=== PATIENT | female | born 1980 | race Caucasian/White ===

== ENCOUNTER 2017-09-18 19:48 | Inpatient (IN) | payer MEDICARE ==
[~2017-09-18] VITALS: Ht 167.6 cm; Wt 58.5 kg
[~2017-09-18 19:48] MED LIST: ALPRAZOLAM; AMBIEN 5 MG TABL5 M1 PO; AMITRIPTYLINE H25 M2; ANTIVERT25 MG PO; AUGMENTIN 875875 MG PO; BENADRYL25 MG PO; BUSPIRONE HCL10 MG PO; BUSPIRONE HCL15 MG; BUTALB-ACETAMI1 EAC2; CIPROFLOXACIN500 M3 PO; CLARITIN10 MG PO; CLONAZEPAM; CLONAZEPAM 0.50.5 M1 PO; CLONAZEPAM PO; CLONAZEPAM0.5 MG PO; COLACE100 MG PO; CYCLOBENZAPRINE10 MG; DILAUDID 4 MG TA4 M1; DOXYCYCLINE 10100 MG PO; DURAGESIC1 EAC2; EFFEXOR XR75 MG PO; FIORICET 50-321 EACH PO; FLONASE 0.05%50 MCG NS; HYDROCORTISONE30 G9; INDOMETHACIN 2525 MG; KEPPRA1000 MG; KETOROLAC TROME10 MG PO; KLONIPIN; KLONOPIN0.5 MG; LIORESAL 10 MG10 MG PO; LOESTRIN FE 1-1 EACH PO; LORTAB 5 MG/5001 TAB PO; LUNESTA3 MG; LUNESTA3 MG PO; LUTERA1 EACH; METAXALONE800 MG PO; MIRTAZAPINE15 M2; NAPROXEN SODIU220 M2; NEURONTIN 300300 M1 PO; NEURONTIN 300M300 M2; NOHOMEMEDICATIONS; NORCO 5-325 TA1 EACH PO; NUVARING VAGIN1 EACH VG; ONDANSETRON HCL4 M3 PO; OXYMORPHONE HCL10 M1 PO; OXYMORPHONE HCL15 MG PO; PAXIL30 MG; PAXIL40 MG PO; PENICILLIN VK500 MG PO; PEPCID20 MG PO; PERCOCET 5-3251 EACH PO; PHENERGAN 25 MG25 M1 PO; PHENERGAN25 MG RECTAL; PREDNISONE 20 M20 M1 PO; PRILOSEC 20 MG20 MG PO; PROMETHAZINE12.5 M1 PO; RELAFEN500 MG PO; REMERON15 MG; SAVELLA50 MG PO; SERTRALINE HCL50 MG PO; SOMA250 MG PO; TOPAMAX50 MG PO; TOPIRAGEN50 MG; TRAMADOL 50 MG50 MG; TRIAMCINOLONE A80 G2 TOP; TYLENOL EX-STR500 M2; ULTRAM 50MG TAB50 MG; VALIUM5 MG PO; VICODIN; VICODIN 5-5001 EACH PO; VISTARIL 25 MG25 M1 PO; VOLTAREN PO; XANAX 1 MG TABLE1 MG PO; ZANAFLEX4 MG PO; ZOFRAN ODT4 MG PO; ZOFRAN4 MG PO; ZOLOFT100 MG; [UNRECOGNIZED DRUG - OTHER]; [UNRECOGNIZED DRUG - OTHER]
[2017-09-18 19:50] VITALS: BP 127/91
[2017-09-18] MEDS ORDERED: LEVOCETIRIZINE D5 MG PO (19:57)
[2017-09-18 20:07] LABS: BE -5.2 mmol/L (-2 to +3); HCO3 17.5 mmol/L (22.0-26.0); PCO2 27.1 mmHg (35.0-45.0); pH 7.427 (7.340-7.450)
[2017-09-18 20:18] LABS: ABSOLUTE EOSINOPHILS 0.1 thou/uL (0.0-0.7); ABSOLUTE LYMPHOCYTES 1.7 thou/uL (0.8-5.3); ABSOLUTE MONOCYTES 0.5 thou/uL (0.0-1.2); ABSOLUTE NEUTROPHILS 10.3 thou/uL (1.6-8.1); BASOPHILS 0.3 %; EOSINOPHILS 0.6 %; HEMATOCRIT 46.4 % (37.0-47.0); HEMOGLOBIN 15.2 gm/dL (12.0-15.0); LYMPHOCYTES 13.9 %; MCH 30.6 pg (26.0-34.0); MCHC 32.7 g/dL (28.0-37.0); MCV 93.4 fL (80.0-100.0); MONOCYTES 3.9 %; MPV 10.6 fl. (7.2-11.1); NUCLEATED RBCS 0 /100WBC; PLATELET COUNT* 184 thou/uL (150-400); POLYS 81.3 %; RBC 4.97 mil/uL (4.20-5.00); RDW-CV 13.6 % (10.5-14.5); WBC 12.6 thou/uL (4.0-11.0)
[2017-09-18 20:26] LABS: ANION GAP 10 mmol/L (7-16); BUN 17 mg/dL (7-18); CALCIUM 9.4 mg/dL (8.5-10.1); CHLORIDE 108 mmol/L (98-107); CO2 28 mmol/L (21-32); CREATININE 0.9 mg/dL (0.6-1.3); GLUCOSE 147 mg/dL (70-99); POTASSIUM 3.9 mmol/L (3.5-5.1); SODIUM 146 mmol/L (136-145)
[2017-09-18 20:28] LABS: APTT 26.7 Seconds (25.0-31.3); INR 1.1; PROTIME 10.4 Seconds (9.20-11.50)
[2017-09-18 20:35] LABS: SALICYLATE 5.7 mg/dL (2.8-20.0)
[2017-09-18 20:36] LABS: ACETAMINOPHEN < 2 ug/mL (10-30)
[2017-09-18 20:44] LABS: ALKALINE PHOSPHATASE 78 U/L (46-116); CK-MB MASS 2.8 ng/mL (<0.5-3.6); NT-PRO BRAIN NAT PEPTIDE 305 pg/mL (<300); SGOT 21 U/L (15-37); SGPT 20 U/L (30-65); TOTAL BILIRUBIN 0.4 mg/dL (<0.1-1.0); TOTAL PROTEIN 8.2 g/dL (6.4-8.2); TROPONIN-I LEVEL <0.06 ng/mL (<0.06)
[2017-09-18 21:20] VITALS: BP 99/60
[2017-09-18 21:45] VITALS: BP 151/72
--- NOTE | 2017-09-18 23:00 | NUR ---
PT. ADMITTED TO BED 3 ICU, SEDATED ON VENTILATOR. VERSED GTT. SEE ASSESSMENT. PT'S MOTHER AND FIANCE AT BEDSIDE UPON ADMISSION ASSESSMENT. PROBABLE UNINTENTIONAL OVERDOSE ON UNKNOWN MEDICATION/AMOUNT. PT. VERY BRADYCARDIC UPON ADMISSION, DR. MARSHALL NOTIFIED. SOFT WRIST BILAT RESTRAINTS PLACED UPON ADMISSION. WILL CONTINUE TO MONITOR.
[2017-09-18 23:15] VITALS: BP 138/79
[2017-09-18 23:30] VITALS: BP 157/73
[2017-09-18 23:56] LABS: URINE BILIRUBIN NEGATIVE (Negative); URINE BLOOD 1+ (Negative); URINE CLARITY CLEAR; URINE COLOR YELLOW; URINE GLUCOSE-RANDOM NEGATIVE (Negative); URINE KETONES NEGATIVE (Negative); URINE LEUKOCYTES-REFLEX NEGATIVE (Negative); URINE NITRITE-REFLEX NEGATIVE (Negative); URINE PROTEIN NEGATIVE (Negative); URINE UROBILINOGEN 0.2 E.U./dl (0.2-1.0)
[2017-09-19] VITALS (23 sets, daily range): BP systolic 85–140; BP diastolic 41–78
[2017-09-19 00:04] LABS: AMP/METHAMP Negative (Negative); BARBITURATES Negative (Negative); BENZODIAZEPINES POSITIVE (Negative); COCAINE Negative (Negative); METHADONE Negative (Negative); OPIATES POSITIVE (Negative); PCP Negative (Negative); THC POSITIVE (Negative)
[2017-09-19 00:10] LABS: CRYSTALS None Seen /LPF (None Seen); FINE GRANULAR CASTS 0-3 Few /LPF (None Seen); HYALINE CASTS 0-3 Few /LPF (None Seen); MUCUS 4-6 Moderate strn/LPF (None Seen); SQUAMOUS 0-3 Few /LPF (0-3); URINE WBC-REFLEX None Seen /HPF (0-5)
--- NOTE | 2017-09-19 05:29 | NUR ---
PT. PROGRESSING TOWARDS GOALS. HEART RATE INCREASED THROUGHOUT SHIFT, PT. STILL BRADYCARDIC BUT RHYTHM APPEARS REGULAR. BP'S STABLE. PT. GRIMACES TO PAIN AND ORAL CARE. VERSED GTT REMAINS INFUSING AT 6MG/HR. MOTHER UPDATED ON PT. STATUS. WILL CONTINUE TO MONITOR.
[2017-09-19 05:39] LABS: BE -4.9 mmol/L (-2 to +3); HCO3 20.1 mmol/L (22.0-26.0); PCO2 37.1 mmHg (35.0-45.0); pH 7.351 (7.340-7.450)
[2017-09-19 05:40] LABS: PO2 132.5 mmHg (75.0-100.0)
--- NOTE | 2017-09-19 10:55 | NUR ---
PT ADMITTED YESTERDAY, FOUND UNRESPONSIVE AT HOME. PT INTUBATED IN E.D. REMAINS ON VENT. MOTHER HERE EARLIER WITH PT. CASE MGT WILL CONTINUE TO FOLLOW.
--- NOTE | 2017-09-19 11:28 | EKG ---
[place] [address] ELECTROCARDIOGRAM REPORT Name: LEROY INMAN Aviva Room: [address] ADM IN M.R.#: [id number] Admission: 09/18/17 Attend Phys: Boni Lloyd MD Discharge: Date of : 82 Report #: [id number] THIS REPORT FOR: //name// [facility] ED Test Date: 2017-09-18 Test Time: 20:47:06 Pat Name: LEROY INMAN Department: Room: [facility] Gender: F Fuel Technician: JUSTYN Kuo : 1980 Requested By: Tien Martinez Order Number: [id number] MD: Bradley Noel Measurements Intervals [place] Rate: 71 P: [place]: QRS: 75 QRSD: 93 T: 74 QT: 529 QTc: 575 Interpretive Statements Atrial flutter Anteroseptal infarct, age indeterminate Prolonged QT interval Compared to ECG 01/31/2015 04:54:42 Myocardial infarct finding now present Prolonged QT interval now present Sinus tachycardia no longer present Atrial abnormality no longer present ST (T wave) deviation no longer present Electronically Signed On 09-19-2017 11:28:03 [employer] by Bradley Noel [email or web address] <ELECTRONICALLY SIGNED> By: Bradley Noel MD, FAC 09/19/17 1128 46 46 Bradley Noel MD, [facility] /EPI
--- NOTE | 2017-09-19 12:53 | NUR ---
2 SILVER COLORED RINGS WITH CLEAR AND BLUE COLORED STONES SENT HOME WITH PT'S PAPA HEIN AT 1230 TODAY.
--- NOTE | 2017-09-19 17:10 | NUR ---
PER DR. OCHOA, PT NEEDS TO BE TRANSFERRED TO HOSPITAL WITH NEROSURGERY. SPOKE WITH MOTHER ON THE PHONE EARLIER TO DISCUSS WITH HER, SHE WANTED TO TALK WITH THE NURSE AND WITH THE DR. SHE SPOKE WITH DR. HERNANDEZ BY PHONE. SPOKE WITH MOTHER AT BEDSIDE, SHE SAID SHE ISN'T SURE THAT PT IS STABLE ENOUGH TO TRANSFER AND SHE WOULD PREFER THAT IT BE RE-EVALUATED IN THE A.M. DR. OCHOA NOTIFIED AND CAME TO TALK WITH MOTHER, SHE NOW AGREES WITH TRANSFER, DR. OCHOA WOULD LIKE PT TRANSFERRED TO [facility]. CALLED TRANSFER TEAM [phone] AND SPOKE WITH HARISH. TRIAGE NURSE SPOKE WITH DR. OCHOA BY PHONE AND WILL CONTACT THEIR PHYSICIAN. FAXED FACE SHEET [phone]. CHART IS COPIED TO GO WITH PATIENT, RADIOLOGY NOTIFIED THAT [facility] WANTS SCANS ON THE CLOUD SO THEY CAN REVIEW.
--- NOTE | 2017-09-19 20:06 | NUR ---
PT LEFT WITH TRANSPORT FOR [facility]. REPORT GIVEN TO YRIS. PT [facility] BED [id number]. DOPAMINE STARTED WELL A VERSED DRIP PRIOR TO TRANSPORT. LAST BP PRIOR TO TRANSFER 128/61 WITH A HR OF 58. PT VERY ANXIOUS AND ATTEMPTING TO SIT UP. PT'S MOTHER AT THE BEDSIDE.
--- NOTE | 2017-09-20 08:32 | CON ---
[address] [address] CONSULTATION Name: LEROY INMAN Room: [address] IN ..#: [id number] Admission: 09/18/17 Attend Phys: Boni Lloyd MD Discharge: 09/19/17 Date of : 82 Report #: [id number] THIS REPORT FOR: //name// CC: [facility] physician/PCP Boni Lloyd DATE OF SERVICE: 09/19/2017 She is located in ICU bed 3. ATTENDING PHYSICIAN: Samy Bazan MD INDICATION FOR CONSULTATION: Acute respiratory failure, possible accidental drug overdose. HISTORY OF PRESENT ILLNESS: The patient is a 37-year-old female, current smoker, who has multiple medical problems. She has chronic pain syndrome from brain surgery several years ago and neck fusion surgery several years ago. She has had a cellulitis of her left foot. It appears her fiance found her down and unresponsive late yesterday afternoon or evening after he came home from work. He tried to arouse her, he could not do that. Ambulance came, they gave her some Narcan. She was minimally responsive. She was seen in the Emergency Room, she was on 3 liters. ABGs were stable at that time. She had several scans done. She had some isolated vasogenic edema on the right temporal lobe where she has had a plate placed. No other masses or bleeds noted. [place] coma scale was somewhere between 6 and 8. Because of her depressed mentation and she had some nausea and vomiting, decision was made to intubate her to protect her airway. She had a patchy right lower lobe infiltrate. She was started on Zosyn for possible aspiration syndrome. She had a previous accidental drug overdose. I think is the first time on the ventilator. PAST MEDICAL HISTORY: Chronic pain syndrome, infected dental caries, cellulitis of the left foot, intermittent nausea and vomiting, chronic dermatitis and chronic pain syndrome. No definite history of seizures. ALLERGIES: She has multiple allergies to ACETAMINOPHEN from PERCOCET, gives her nausea and vomiting; MORPHINE gives her nausea; OXYCODONE from PERCOCET, nausea and vomiting. She states any PERCOCET, LIGHT DRUGS makes her vomit. MEDICATIONS: She was taking Augmentin that had been discontinued, I believe on September 18. She is on Topamax 50 mg at bedtime, oxymorphone hydrochloride ER 15 mg b.i.d. and then oxymorphone hydrochloride ER 10 mg q.i.d. She is on ketorolac or Toradol 10 mg p.o. t.i.d. and milnacipran or Savella 50 mg b.i.d., diazepam or Valium of 5 mg t.i.d. She was on baclofen 10 mg t.i.d., clonazepam 0.5 mg every 12 hours and levocetirizine 5 mg daily. Currently, she was on IV Versed. IV Diprivan has just been started and also on [place] [address] CONSULTATION Name: LEROY INMAN Aviva Room: [address]#: [id number] Admission: 09/18/17 Attend Phys: Boni Lloyd MD Discharge: 09/19/17 Date of : 82 Report #: [id number] treatments. She is also on Protonix 40 mg daily. OTHER PAST SURGICAL HISTORY: brain surgery for tumor removal 2004 with metal plate, I am not certain of when or where that was done, neck surgery C4-C6 fusion in the past, fibromyalgia, anxiety, pain pump was placed in 2017. She has had depression. FAMILY HISTORY: Negative for premature cardiopulmonary disease. SOCIAL HISTORY: The patient still smokes about a pack of cigarettes a day. She smokes marijuana every other day and does have alcohol use socially. Denies any other illicit drug use. REVIEW OF SYSTEMS: A 14-point review of systems reviewed and negative per family members. PHYSICAL EXAMINATION: GENERAL: A 37-year-old female, orally intubated, fighting the ventilator at least at this time, trying to self extubate. VITAL SIGNS: Blood pressure is 110/60 on no pressors, heart rate is 56-60, respirations 12 with a backup rate of 12 and temperature of 36.5 degrees. She is 5 feet 4 inches tall, weight is 58 kilograms or 128 pounds, BMI is 21. HEENT: Pupils are midpoint and reactive. She is orally intubated with a 7.0 tube. She is coughing and gagging on the tube. She has an NG tube in place with some dark bloody drainage. NECK: Supple, without nodes. CHEST: Shows a few rhonchi on the right, otherwise clear on the left. CARDIOVASCULAR: Regular rate and rhythm without murmur, gallop or rub. Heart rate is 56-60. ABDOMEN: Soft, without masses or megaly. EXTREMITIES: Moves all fours, tried to self-extubate. No cyanosis, clubbing or edema noted. SKIN: Mostly intact. There is some cellulitis, erythema of her left foot and ankle and minimal cellulitis noted there. NEUROLOGIC: Intact. She moves all fours. She is not to commands at this time, but is trying to purposefully self-extubate. LABORATORY DATA: Hemoglobin 15, white count is 12,600. Sodium is 146, potassium 3.9, chloride is 108, BUN is 17, creatinine is 0.9 and glucose of 147. Other glucose is 123 and ALT is low at 20. NT-proBNP is 305 and albumin is normal at 4.0. ABGs this morning on 50%, 500; assist control 12; PEEP of 5; shows pO2 of 132, pH 7.35, pCO2 is 37, bicarbonate is 20, sats 97%, mild base excess negative 4.9. Chest x-ray shows patchy right lower lobe infiltrate. ET tube in good position. Below the diaphragms appears normal with a patchy right lower lobe, right middle lobe infiltrate noted. [place] [address] CONSULTATION Name: LEROY INMAN Room: [address] IN [facility].#: [id number] Admission: 09/18/17 Attend Phys: Boni Lloyd MD Discharge: 09/19/17 Date of : 82 Report #: [id number] IMPRESSION: 1. Drug overdose, intent not noted, most likely is benzodiazepines and narcotics, also marijuana. 2. Chronic pain syndrome. 3. Acute respiratory failure. PLAN: To see we can continue the patient on nebulizer treatments, also on Zosyn to see if we can clear up secretions here in the next day or so. Hopefully, if she starts to wake up and improve, we can get her extubated within 12-24 hours. No evidence of methamphetamine overdose at this time and I do not think she has taken any tricyclics, etc. Hopefully, we will soon get her off her relatively quickly and then she will need lots of work with chronic pain syndrome and may need to have Neurology see her while she is here as well as Psychiatry to see if they can get their heads together and see if there is anything else we can do to help her out. We will try to figure out what is in her pain pump. We will work on the records from the pain clinic. This has been a 36 minute critical care consult. <ELECTRONICALLY SIGNED> By: Brian Alberts MD 09/20/17 0832 0938 [id number] Alberts MD /nt
--- NOTE | 2017-09-20 08:33 | CON ---
[facility] [address] [place] [address] CONSULTATION Name: LEROY INMAN Aviva Room: [address] IN M.R.#: [id number] Admission: 09/18/17 Attend Phys: Boni Lloyd MD Discharge: 09/19/17 Date of : 82 Report #: [id number] THIS REPORT FOR: //name// CC: [facility] physician/PCP Boni Lloyd DATE OF SERVICE: 09/19/2017 HISTORY OF PRESENT ILLNESS: This is a 37-year-old female patient who is unable to provide any history. This patient is intubated. Significant other and the mother is here who provided some history. Significant other tells me that he went for work and she was okay, but when he came back, she was unresponsive. He is not sure what happened to her during that time. She has been here. There has been no seizure activity noticed. This patient has a pain pump put in. There was a plan to decrease her narcotic medication. REVIEW OF SYSTEMS: Complicated by the fact that the patient had a brain surgery and apparently has a plate there. The brain surgery was done in [place]. They resected a tumor. She does not follow up with the neurosurgeon on a regular basis, but they are doing periodic MRI on her. Apparently, the last one was okay. She does not know what tumor it was. 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 They do not know for sure. The patient never had these seizures before that tumor and is not clear what the symptom was. She also has a cervical spine problem. She had a surgery there according to the family and that is all the history I can get from the family. Presently, no seizure activity has been noticed. She has multiple other problems, which is going on in this patient. She is on multiple medications. She does take Topamax and Valium as per report, but it is very difficult to confirm this patient's history. PAST MEDICAL HISTORY: Positive for brain tumor. FAMILY HISTORY: Negative for any early stroke. SOCIAL HISTORY: There is a history of smoking. PHYSICAL EXAMINATION: Is not possible, she is sedated. She does not move anything. There is really no response of any kind. CT scan was reviewed and that does demonstrate that the patient has vasogenic edema. IMPRESSION: The diagnosis in this patient is not clear. She may have trouble with the medication, but CT scan finding is worrisome. She needs a neurosurgical evaluation in that regard to see how much that is contributing to her symptom, especially because that area is [place] [address] CONSULTATION Name: LEROY Aviva Room: [address]#: [id number] Admission: 09/18/17 Attend Phys: Boni Lloyd MD Discharge: 09/19/17 Date of : 82 Report #: [id number] is difficult here because we can do an MRI in this patient. We can do the CT scan with contrast, but again we will need some neuroradiologist and neurosurgeon to evaluate that. RECOMMENDATION: I initially talked to the patient's family and subsequently talked to the admitting doctor. My recommendation is to transfer this patient to a facility where neurosurgical services are available because some of the changes are new. That needs to be addressed to determine what the etiology of the patient's symptoms are and to see how much that is contributing to her symptoms and how much the medication she is on or may have taken it by mistake is contributing to her symptoms. However, neurosurgeon do need to evaluate the patient's new finding on the CT scan. I discussed that with Dr. Bazan and my recommendation was to transfer this to a facility where Neurosurgery is available, so that they can evaluate that and give their opinion and then situation can be addressed to determine the etiology of the patient's symptoms. Dr. Bazan is going to work on that. Thank you very much for this referral and if you have any question, please feel free to contact me. If the patient stays here, I will ask Dr. Owens to follow up this patient, but I believe this patient should be evaluated by Neurosurgery. this addendum is being added at the time of signing this note. Patient was discussed with the patient's mother again in great detail about her options on getting this CT scan evaluated by a neurosurgeon. I also discussed that with Dr. Dolan. I also discussed in detail with the patient's mother that we do not have any neurosurgeon here. Initially she has indicated that the patient had imaging study of the brain on a regular basis but I talked to her that the last scan we had was in 2011 and where did she hadother scans. She was not sure after that. I discussed her options in great detail in that regard and a total of more than 50 minutes of time was spent taking care of this patient and majority of that time was spent counseling the patient's family and coordinating her care. <ELECTRONICALLY SIGNED> By: Byron Valdivia MD 09/20/17 0833 1516 [id number] Valdivia MD /nt
--- NOTE | 2017-09-20 10:39 | EEG ---
[address] [address] EEG STUDY REPORT Name: LEROY INMAN Room: [address] IN M.R.#: [id number] Admission: 09/18/17 Attend Phys: Boni Lloyd MD Discharge: 09/19/17 Date of : 82 Report #: [id number] THIS REPORT FOR: //name// CC: [facility] physician/PCP Boni Lloyd DATE OF SERVICE: 09/19/2017 This patient's EEG was done by placing the electrodes by standard 10-20 system of electrode placement. Both referential and sequential montages were used for recording. PROCEDURE: This is a very poorly formed background activity. Background activity does go up to about 6-7 Hz and 30 microvolts. Throughout the record, activity is disorganized and poorly formed. IMPRESSION: This is a severely abnormal EEG consistent with a diagnosis of encephalopathy. However, similar finding can occur with effects of medication, dementia, etc. and therefore, clinical correlation is recommended. <ELECTRONICALLY SIGNED> By: Byron Valdivia MD 09/20/17 1039 1633 [id number] Valdivia MD /nt
== END 2017-09-19 20:00 | disposition short-term general hospital (02) | DRG 871 ==
LOC: M.ERS 19:48 → M.ICU 20:48 → M.TBA-ER 20:48 → M.ICU 20:52
PROVIDERS: Family Medicine; Internal Medicine Critical Care Medicine; ADMIT Internal Medicine
PROC: 0BH17EZ Insertion of Endotracheal Airway into Trachea, Via Natural or Artificial Opening (ICD-10-PCS; principal; 2017-09-18)
PROC: 5A1935Z Respiratory Ventilation, Less than 24 Consecutive Hours (ICD-10-PCS; principal; 2017-09-18)
DX: A41.9 Sepsis, unspecified organism (principal); J69.0 Pneumonitis due to inhalation of food and vomit; G93.40 Encephalopathy, unspecified; J96.00 Acute respiratory failure, unspecified whether with hypoxia or hypercapnia; T50.901A Poisoning by unspecified drugs, medicaments and biological substances, accidental (unintentional), initial encounter; R65.10 Systemic inflammatory response syndrome (SIRS) of non-infectious origin without acute organ dysfunction; F32.9 Major depressive disorder, single episode, unspecified; F41.9 Anxiety disorder, unspecified; G89.4 Chronic pain syndrome; F17.210 Nicotine dependence, cigarettes, uncomplicated; Z98.1 Arthrodesis status; Z88.5 Allergy status to narcotic agent; Z88.6 Allergy status to analgesic agent; Z88.8 Allergy status to other drugs, medicaments and biological substances